=== PATIENT | male | born 1985 | race Caucasian/White ===

== ENCOUNTER 2019-12-03 07:47 | Emergency (ER) | payer BC, OTHER ==
--- NOTE | 2019-12-03 08:08 | ED ---
General Adult HPI - General Chief complaint: Nausea/Vomiting/Diarrhea Stated complaint: sore throat/vomiting/diarrhea Time Seen by Provider: 12/03/19 07:53 Source: family, RN notes reviewed Mode of arrival: ambulatory Limitations: no limitations - History of Present Illness Initial comments: This a 34-year-old male presents emergency Department with chief complaint of cough, body aches, intermittent episodes of emesis. Patient states that his significant other made him come emergency department for evaluation because she is . Patient is concerned about possible Covid. Patient denies any fevers. Patient states she does vomit occasionally in the morning but states it goes away has no associated pain with this. He does admit that he has reflux chronically is not taking for this. Patient denies any difficulty swallowing. He states that it's just mildly sore with more raspy sound. Patient is a smoker. Patient denies any headache, dizziness, neck pain. Patient denies any sick contacts. - Related Data Previous Rx's Medication Instructions Recorded Meclizine [Antivert] 25 mg PO BID #20 tab 05/12/17 Allergies Allergy/AdvReac Type Severity Reaction Status Date / Time No Known Allergies Allergy Verified 12/03/19 07:48 Review of Systems ROS Statement: Those systems with pertinent positive or pertinent negative responses have been documented in the HPI. ROS Other: All systems not noted in ROS Statement are negative. Past Medical History Past Medical History: No Reported History History of Any Multi-Drug Resistant Organisms: None Reported Past Surgical History: No Surgical Hx Reported Past Psychological History: No Psychological Hx Reported Smoking Status: Current some day smoker Past Alcohol Use History: Occasional Past Drug Use History: Marijuana General Exam Limitations: no limitations General appearance: alert, in no apparent distress Head exam: Present: atraumatic, normocephalic, normal inspection Eye exam: Present: normal appearance, PERRL, EOMI. Absent: scleral icterus, conjunctival injection, periorbital swelling ENT exam: Present: mucous membranes moist, TM's normal bilaterally. Absent: normal exam, normal oropharynx (Very minimal erythema) Neck exam: Present: normal inspection, full ROM. Absent: tenderness, meningismus, lymphadenopathy Respiratory exam: Present: normal lung sounds bilaterally. Absent: respiratory distress, wheezes, rales, rhonchi, stridor Cardiovascular Exam: Present: regular rate, normal rhythm, normal heart sounds. Absent: systolic murmur, diastolic murmur, rubs, gallop, clicks GI/Abdominal exam: Present: soft, normal bowel sounds. Absent: distended, tenderness, guarding, rebound, rigid Neurological exam: Present: alert, oriented X3, CN II-XII intact Skin exam: Present: warm, dry, intact, normal color. Absent: rash Course Vital Signs 12/03/19 07:48 Temperature 98.2 F Pulse Rate 68 Respiratory 16 Rate Blood Pressure 124/80 O2 Sat by Pulse 96 Oximetry Medical Decision Making - Medical Decision Making 34-year-old male presented for URI symptoms. Patient chest x-ray is unremarkable pending Covid test. Patient most likely just has a viral versus infection patient also has underlying GERD in which patient was started on omeprazole.I counseled the patient for smoking cessation for greater than 3 minutes patient advised to follow-up with PCP and return for any change in worsening symptoms. Disposition Clinical Impression: Viral illness, GERD (gastroesophageal reflux disease) Disposition: HOME SELF-CARE Condition: Stable Instructions (If sedation given, give patient instructions): Viral Syndrome (ED) Additional Instructions: Please return to the Emergency Department if symptoms worsen or any other concerns. Is patient prescribed a controlled substance at d/c from ED?: No Referrals: None,Stated [Primary Care Provider] - 1-2 days Time of Disposition: 09:13
--- NOTE | 2019-12-03 08:32 | XR ---
EXAMINATION TYPE: XR chest 2V DATE OF EXAM: 12/03/2019 COMPARISON: 05/12/2017 HISTORY: 34-year-old male with cough TECHNIQUE: PA and lateral views FINDINGS: Heart normal size. Aorta and pulmonary vasculature within normal limits. No consolidation or pleural effusion. IMPRESSION: No acute cardiopulmonary process.
[2019-12-03 09:33] VITALS: BP 121/82; PULSE 80; RESP 18; TEMP 97.7
== END 2019-12-03 09:33 | disposition home or self-care (01) ==
LOC: EC 07:47
DX: B34.9 Viral infection, unspecified (principal); K21.9 Gastro-esophageal reflux disease without esophagitis; F17.200 Nicotine dependence, unspecified, uncomplicated; Z20.828 Contact with and (suspected) exposure to other viral communicable diseases
CPT/HCPCS: 71046; 99284; U0003